=== PATIENT | female | born 1990 | race Caucasian/White ===

== ENCOUNTER 2018-11-05 15:48 | Outpatient (REF) | payer BC, SELFPAY ==
[2018-11-05 22:08] LABS: Hemoglobin A1C 5.7 % (4.5-6.2)
[2018-11-05 22:16] LABS: Calculated LDL 96 mg/dL; Cholesterol 162 mg/dL (50-200); HDL Cholesterol 41 mg/dL (40-60); TSH 2.08 uIU/mL (0.36-3.74); Triglyceride 129 mg/dL (30-150)
== END 2018-11-05 16:08 ==
LOC: NCHCN 15:48
PROVIDERS: PCP Nurse Practitioner Family; Visit Provider Nurse Practitioner Family
DX: Z00.00 Encounter for general adult medical examination without abnormal findings (principal); N63.0 Unspecified lump in unspecified breast; Z13.29 Encounter for screening for other suspected endocrine disorder; Z13.1 Encounter for screening for diabetes mellitus; Z13.220 Encounter for screening for lipoid disorders; E66.9 Obesity, unspecified
CPT/HCPCS: 80061; 83036; 84443

== ENCOUNTER 2020-02-18 17:35 | Outpatient (REF) | payer BC, SELFPAY ==
[2020-02-18 21:58] LABS: HCG Qual (Serum) Positive
[2020-02-18 22:27] LABS: HCG Quant, Pregnancy 20 mIU/mL (1-3)
== END 2020-02-18 17:55 ==
LOC: NCHCN 17:35
PROVIDERS: PCP Nurse Practitioner Family; Visit Provider Nurse Practitioner Family
DX: Z32.00 Encounter for pregnancy test, result unknown (principal)
CPT/HCPCS: 84165; 84702; 84703; 85025

== ENCOUNTER 2020-02-23 20:38 | Outpatient (REF) | payer BC, SELFPAY ==
[2020-02-23 20:57] LABS: HCG Quant, Pregnancy 4 mIU/mL (1-3)
== END 2020-02-23 20:58 ==
LOC: NCHCN 20:38
PROVIDERS: PCP Nurse Practitioner Family; Visit Provider Nurse Practitioner Family
DX: O46.91 Antepartum hemorrhage, unspecified, first trimester (principal)
CPT/HCPCS: 84702

== ENCOUNTER 2021-02-18 15:10 | Outpatient (REF) | payer BC, SELFPAY ==
[2021-02-18 21:07] LABS: Abs Immature Grans 0.01 10^3/uL (0.0-0.06); Absolute Basophil Count 0.01 10^3/uL (0.0-0.2); Absolute Eosinophil Count 0.09 10^3/uL (0.0-0.7); Absolute Lymphocyte Count 1.46 10^3/uL (1.2-3.4); Absolute Monocyte Count 0.31 10^3/uL (0.1-0.8); Absolute Neutrophil Count 3.68 10^3/uL (1.2-6.7); Basophils % 0.2; Eosinophils % 1.6; HCT 40.4 % (36.0-46.0); HGB 12.5 g/dL (11.2-15.7); Immature Grans % 0.2; Lymphocytes % 26.3; MCH 26.8 pg (27.0-33.0); MCHC 30.9 % (32.0-36.0); MCV 86.5 fL (80-95); Monocytes % 5.6; Neutrophils % 66.1; Nucleated RBC 0 %; Platelet Count 257 10^3/uL (130-400); RBC 4.67 10^6/uL (3.93-5.22); RDW 13.2 % (11.7-14.6); WBC 5.56 10^3/uL (4.4-10.8)
[2021-02-18 21:08] LABS: ALT 252 U/L (14-59); AST 194 U/L (15-37); Albumin 3.8 g/dL (3.4-5.0); Alkaline Phosphatase 161 U/L (46-116); Anion Gap 11.5 mmol/L (3-11); BUN 12 mg/dL (7-18); Bilirubin, Total 0.3 mg/dL (0.2-1.0); CO2 22.5 mmol/L (21.0-32.0); CREATININE 0.7 mg/dL (0.55-1.02); Calcium 8.8 mg/dL (8.5-10.1); Chloride 109 mmol/L (98-107); Glucose 99 mg/dL (74-106); Lipase 187 U/L (73-393); Potassium 4.3 mmol/L (3.5-5.1); Sodium 143 mmol/L (136-145); Total Protein 7.5 g/dL (6.4-8.2)
[2021-02-21 13:05] LABS: Hepatitis A Antibody IgM Negative (Negative); Hepatitis B Core Antibody Negative (Negative); Hepatitis B surface Ag Negative (Negative); Hepatitis C Ab w Rflx HCV PCR Negative (Negative)
== END 2021-02-18 15:11 | disposition home or self-care (01) ==
LOC: NCHCN 15:10
PROVIDERS: PCP Nurse Practitioner Family; Visit Provider Nurse Practitioner Family
DX: R10.9 Unspecified abdominal pain (principal); R74.01 Elevation of levels of liver transaminase levels; E66.9 Obesity, unspecified
CPT/HCPCS: 80053; 83690; 86704; 86709; 86803; 87340; 85025